=== PATIENT | male | born 1955 | race Two or more races ===

== ENCOUNTER 2017-01-11 17:24 | Emergency (ER) | payer MEDICARE, MEDICAID ==
[~2017-01-11] VITALS: Ht 185.4 cm; Wt 99.8 kg
[2017-01-11 18:27] LABS: Basophils # (auto) 0.1 uL; Basophils % (auto) 1.2 % (0.0-2.0); CONDITION Y; DEFINITIVE SEE PRINTOUT; Eosinophils # (auto) 0.6 uL; Eosinophils % (auto) 6.2 % (0.0-7.0); Hematocrit 30.6 % (41.0-53.0); Hemoglobin 9.5 g/dL (13.5-17.5); Lymphocytes # (auto) 2.3 uL; Lymphocytes % (auto) 22.8 % (10.0-50.0); Mean Corpuscular Hemoglobin 21.9 pg (28.0-32.0); Mean Corpuscular Volume 70.6 fL (80.0-100.0); Mean Platelet Volume 7.2 fL (7.4-10.4); Monocytes # (auto) 0.8 uL; Monocytes % (auto) 8.1 % (0.0-12.0); Neutrophils # (auto) 6.1 uL; Neutrophils % (auto) 61.7 % (37.0-80.0); Platelet Count (auto) 353 10^3/uL (140-450); White Blood Cell 9.9 10^3/uL (4.4-10.8)
[2017-01-11 18:43] LABS: Albumin 3.5 g/dL (3.4-5.0); BUN/Creatinine Ratio 19.1; Calcium 8.2 mg/dL (8.5-10.1); Potassium 4.1 mmol/L (3.5-5.1)
[2017-01-11 18:44] LABS: Red Cell Distribution Width 20.5 % (11.6-16.0)
[2017-01-11 18:46] LABS: Bilirubin, Total 0.3 mg/dL (0.2-1.0); Total Protein 7.2 g/dL (6.4-8.2)
[2017-01-11 19:02] LABS: Anisocytosis Slight; Hypochromia Slight; Ovalocytes FEW; Platelet Estimate Adequate
[2017-01-12 05:50] VITALS: BP 128/82
[2017-01-12] MEDS ORDERED: SODIUM CHLORIDE 0.9% 250 ML IV ONE (06:25)
[2017-01-12] MEDS ORDERED: PROMETHAZINE HCL 25 MG/ML 1ML IV ONE (06:30)
[2017-01-12] MEDS ORDERED: MORPHINE SULF INJ 2 MG/ML SYRINGE 1ML IM ONE (06:30)
[2017-01-12 06:44] LABS: INR 0.93 (0.9-1.15); Partial Thromboplastin Time 27.4 sec (22.64-33.71); Prothrombin Time 10.1 sec (9.37-12.3)
[2017-01-12] MEDS ORDERED: MORPHINE SULF INJ 2 MG/ML SYRINGE 1ML IV ONE (06:45)
== END 2017-01-12 07:13 | disposition home or self-care (01) ==
LOC: ER 17:26
DX: M79.89 Other specified soft tissue disorders (principal); I25.810 Atherosclerosis of coronary artery bypass graft(s) without angina pectoris; D50.9 Iron deficiency anemia, unspecified; I10 Essential (primary) hypertension; Z86.718 Personal history of other venous thrombosis and embolism
CPT/HCPCS: 36415; 71020; 80053; 85025; 85610; 85730; 93005; 93970; 96374; 96375; 99285; J2270; J2550; J7030

== ENCOUNTER 2017-01-19 21:31 | Emergency (ER) | payer MEDICARE, OTHER ==
[~2017-01-19] VITALS: Ht 185.4 cm; Wt 99.8 kg
[2017-01-19] MEDS ORDERED: ONDANSETRON HCL 4 MG/2 ML VIAL IV ONE (22:15)
[2017-01-19] MEDS ORDERED: HYDROmorphone HCL 2 MG/ML VL IV ONE ×2 (22:15→23:15)
[2017-01-19 22:17] LABS: Basophils # (auto) 0 uL; Basophils % (auto) 0.3 % (0.0-2.0); CONDITION Y; DEFINITIVE SEE PRINTOUT; Eosinophils # (auto) 0.3 uL; Hematocrit 27.3 % (41.0-53.0); Hemoglobin 8.6 g/dL (13.5-17.5); Lymphocytes # (auto) 1.9 uL; Lymphocytes % (auto) 21.4 % (10.0-50.0); Mean Corpuscular Hemoglobin 22.1 pg (28.0-32.0); Mean Corpuscular Hgb Conc. 31.5 g/dL (32.0-36.0); Mean Corpuscular Volume 70.1 fL (80.0-100.0); Mean Platelet Volume 6.7 fL (7.4-10.4); Monocytes # (auto) 0.8 uL; Monocytes % (auto) 9.6 % (0.0-12.0); Neutrophils # (auto) 5.6 uL; Neutrophils % (auto) 64.7 % (37.0-80.0); Platelet Count (auto) 446 10^3/uL (140-450); White Blood Cell 8.7 10^3/uL (4.4-10.8)
[2017-01-19 22:29] LABS: INR 0.98 (0.9-1.15); Partial Thromboplastin Time 24.2 sec (22.64-33.71); Prothrombin Time 10.7 sec (9.37-12.3)
[2017-01-19 22:35] LABS: Albumin 3.1 g/dL (3.4-5.0); BUN/Creatinine Ratio 23.5; Bilirubin, Total 0.3 mg/dL (0.2-1.0); Calcium 8.3 mg/dL (8.5-10.1); Total Protein 6.4 g/dL (6.4-8.2)
[2017-01-19 22:38] LABS: Platelet Estimate Adequate
[2017-01-19 22:39] LABS: Anisocytosis Moderate; Hypochromia Moderate; Ovalocytes FEW
[2017-01-19] MEDS ORDERED: ASPirin 81 mg TAB PO ONE (22:45)
[2017-01-19 23:17] LABS: Magnesium 2.2 mg/dL (1.6-2.6)
[2017-01-19 23:39] LABS: B-Type Natriuretic Peptide 39.73 pg/mL (0-100)
[2017-01-19 23:48] LABS: Temperature: 23.5 C (20.0-25.0)
[2017-01-20] MEDS ORDERED: DIAZEPAM 5 MG/ML 2ML SYRG IV ONE ×3 (00:45→08:00)
[2017-01-20] MEDS ORDERED: HYDROmorphone HCL 2 MG/ML VL IV ONE ×4 (02:30→10:00)
[2017-01-20] MEDS ORDERED: BACLOFEN 10 MG TAB PO ONE (03:45)
[2017-01-20] MEDS ORDERED: ONDANSETRON HCL 4 MG/2 ML VIAL IV ONE (06:00)
[2017-01-20 09:50] VITALS: BP 139/98
[2017-01-20] MEDS ORDERED: LORazepam 2MG/ML-1ML VIAL IV ONE (10:00)
== END 2017-01-20 10:01 | disposition short-term general hospital (02) ==
LOC: ER 21:43
DX: S73.005A Unspecified dislocation of left hip, initial encounter (principal); I10 Essential (primary) hypertension; X58.XXXA Exposure to other specified factors, initial encounter; Y93.39 Activity, other involving climbing, rappelling and jumping off; Y99.8 Other external cause status; Y92.89 Other specified places as the place of occurrence of the external cause; Z96.643 Presence of artificial hip joint, bilateral
CPT/HCPCS: 36415; 71010; 73502; 80053; 83735; 83880; 84443; 84484; 85025; 85379; 85610; 85730; 93005; 94761; 96374; 96375; 96376; 99285; J1170; J2060; J2405; J3360; J7030

== ENCOUNTER → 2017-03-09 | Outpatient (CLI) | payer MEDICARE, OTHER ==
[~2017-03-09] VITALS: Ht 185.4 cm; Wt 102.1 kg
[~2017-03-09] MED LIST: D5W 5% IV SCH; DIPYRIDAMOLE (5MG/ML) 10 ML VIAL IV ONE; DIPYRIDAMOLE IV SCH
== END | disposition home or self-care (01) ==
LOC: Rad HDHVI 13:27
PROVIDERS: ATTEND Internal Medicine Cardiovascular Disease
DX: I10 Essential (primary) hypertension (principal); I25.10 Atherosclerotic heart disease of native coronary artery without angina pectoris; E78.00 Pure hypercholesterolemia, unspecified
CPT/HCPCS: 78452; 93005; 96374; 96375; A9500; J1245

== ENCOUNTER → 2017-03-28 | Outpatient (CLI) | payer MEDICARE, OTHER | END | disposition home or self-care (01) | LOC: Rad HDHVI 15:00 | PROVIDERS: ATTEND Internal Medicine Cardiovascular Disease | DX: I10 Essential (primary) hypertension (principal) | CPT/HCPCS: 93306 ==

== ENCOUNTER → 2017-05-13 | Outpatient (CLI) | payer MEDICARE, OTHER ==
[2017-05-13 13:00] LABS: Nucleated Red Blood Cells % 0.1 %; Urine Bilirubin Negative (Negative); Urine Blood Negative /uL (Negative); Urine Color Yellow (Yellow); Urine Glucose Normal (Normal); Urine Ketone Negative (Negative); Urine Nitrite Negative (Negative)
[2017-05-13 13:03] LABS: Basophils # (auto) 0.1 uL; Basophils % (auto) 0.7 % (0.0-2.0); Eosinophils # (auto) 0.3 uL; Eosinophils % (auto) 3.3 % (0.0-7.0); Hematocrit 35.4 % (41.0-53.0); Hemoglobin 10.8 g/dL (13.5-17.5); Lymphocytes # (auto) 1.6 uL; Lymphocytes % (auto) 19.8 % (10.0-50.0); Mean Corpuscular Hemoglobin 21.4 pg (28.0-32.0); Mean Corpuscular Hgb Conc. 30.4 g/dL (32.0-36.0); Mean Corpuscular Volume 70.6 fL (80.0-100.0); Mean Platelet Volume 7.7 fL (6.9-10.8); Monocytes # (auto) 0.8 uL; Monocytes % (auto) 9.4 % (0.0-12.0); Neutrophils # (auto) 5.5 uL; Neutrophils % (auto) 66.8 % (37.0-80.0); Platelet Count (auto) 252 10^3/uL (140-450); Red Cell Distribution Width 19.3 % (11.8-14.3); White Blood Cell 8.2 10^3/uL (4.4-10.8)
[2017-05-13 13:37] LABS: Albumin 3.3 g/dL (3.4-5.0); BUN/Creatinine Ratio 31.7; Bilirubin, Direct 0.2 mg/dL (0-0.2); Bilirubin, Total 0.6 mg/dL (0.2-1.0); Calcium 9.1 mg/dL (8.5-10.1); Potassium 3.8 mmol/L (3.5-5.1); Total Protein 6.6 g/dL (6.4-8.2)
== END | disposition home or self-care (01) ==
LOC: LAB 08:39
PROVIDERS: ATTEND Internal Medicine Cardiovascular Disease
DX: I10 Essential (primary) hypertension (principal); E78.00 Pure hypercholesterolemia, unspecified; K74.1 Hepatic sclerosis; E11.9 Type 2 diabetes mellitus without complications; R97.20 Elevated prostate specific antigen [PSA]; R53.81 Other malaise; E03.9 Hypothyroidism, unspecified; D64.9 Anemia, unspecified; E55.9 Vitamin D deficiency, unspecified; N39.0 Urinary tract infection, site not specified
CPT/HCPCS: 36415; 80048; 80061; 80076; 81003; 82306; 83036; 84153; 84403; 84443; 85025

== ENCOUNTER 2017-08-13 20:42 | Emergency (ER) | payer MEDICARE, OTHER ==
[~2017-08-13] VITALS: Ht 188 cm; Wt 104.3 kg
[2017-08-13] MEDS ORDERED: MORPHINE SULFATE 4 MG/ML SYR/VIAL IV ONE (22:45)
[2017-08-13] MEDS ORDERED: ONDANSETRON HCL 4 MG/2 ML VIAL IV ONE ×2 (22:45→23:30)
[2017-08-13 23:13] LABS: Basophils # (auto) 0.1 uL; Basophils % (auto) 1.1 % (0.0-2.0); Eosinophils # (auto) 0.5 uL; Eosinophils % (auto) 4.7 % (0.0-7.0); Hematocrit 36.3 % (41.0-53.0); Hemoglobin 10.8 g/dL (13.5-17.5); Lymphocytes # (auto) 2.4 uL; Lymphocytes % (auto) 22.6 % (10.0-50.0); Mean Corpuscular Hemoglobin 21.2 pg (28.0-32.0); Mean Corpuscular Hgb Conc. 29.6 g/dL (32.0-36.0); Mean Corpuscular Volume 71.6 fL (80.0-100.0); Monocytes # (auto) 0.8 uL; Monocytes % (auto) 8.1 % (0.0-12.0); Neutrophils # (auto) 6.6 uL; Neutrophils % (auto) 63.5 % (37.0-80.0); Platelet Count (auto) 437 10^3/uL (140-450); Red Blood Cells 5.06 10^6/uL (4.5-5.90); White Blood Cell 10.4 10^3/uL (4.4-10.8)
[2017-08-13 23:14] LABS: Red Cell Distribution Width 21.5 % (11.8-14.3)
[2017-08-13] MEDS ORDERED: HYDROmorphone HCL 2 MG/ML VL IV ONE (23:30)
[2017-08-13 23:36] LABS: Albumin 3.1 g/dL (3.4-5.0); BUN/Creatinine Ratio 21.2; Bilirubin, Total 0.2 mg/dL (0.2-1.0); Calcium 8.3 mg/dL (8.5-10.1); Potassium 4.2 mmol/L (3.5-5.1); Total Protein 6.9 g/dL (6.4-8.2)
[2017-08-14] MEDS ORDERED: MORPHINE SULFATE 4 MG/ML SYR/VIAL IV ONE (01:15)
[2017-08-14] MEDS ORDERED: OXYCODONE W/ ACETAMINOPHEN 5/325MG TABLET PO ONE (01:15)
[2017-08-14 04:44] VITALS: BP 131/79
== END 2017-08-13 23:07 | disposition home or self-care (01) ==
LOC: ER 20:46
DX: M54.9 Dorsalgia, unspecified (principal); I10 Essential (primary) hypertension
CPT/HCPCS: 36415; 71250; 74176; 80053; 85025; 96374; 96375; 99285; J2270; J2405

== ENCOUNTER 2017-09-11 21:37 | Emergency (ER) | payer MEDICARE, OTHER ==
[~2017-09-11] VITALS: Ht 188 cm; Wt 102.1 kg
[2017-09-11 22:37] LABS: Urine Bacteria FEW /hpf (None Seen); Urine Blood Negative /uL (Negative); Urine Hyaline Cast FEW /lpf (0 - 2); Urine Mucus FEW (None Seen); Urine Specific Gravity 1.032 (1.001-1.035); Urine WBC 3 /hpf (0 - 3)
[2017-09-11 23:03] LABS: Eosinophils # (auto) 0.3 uL; Monocytes # (auto) 1.3 uL
[2017-09-11 23:04] LABS: Basophils # (auto) 0.2 uL; Basophils % (auto) 1.4 % (0.0-2.0); Eosinophils % (auto) 1.7 % (0.0-7.0); Hematocrit 40.4 % (41.0-53.0); Mean Corpuscular Hemoglobin 21.2 pg (28.0-32.0); Mean Corpuscular Hgb Conc. 29.8 g/dL (32.0-36.0); Mean Corpuscular Volume 71.1 fL (80.0-100.0); Monocytes % (auto) 8.6 % (0.0-12.0); Neutrophils # (auto) 11.6 uL; Neutrophils % (auto) 75.3 % (37.0-80.0); Nucleated Red Blood Cells % 0.1 %; Platelet Count (auto) 505 10^3/uL (140-450); Red Blood Cells 5.68 10^6/uL (4.5-5.90); White Blood Cell 15.4 10^3/uL (4.4-10.8)
[2017-09-11 23:08] LABS: Red Cell Distribution Width 20.3 % (11.8-14.3)
[2017-09-11 23:17] LABS: INR 0.96 (0.9-1.15); Prothrombin Time 10.5 sec (9.37-12.3)
[2017-09-11 23:30] LABS: Alanine Aminotransferase 17 U/L (16-61); Albumin 3.6 g/dL (3.4-5.0); Alkaline Phosphatase 97 U/L (45-117); Amylase 60 U/L (25-115); Anion Gap 11 (5-15); Aspartate Aminotransferase 16 U/L (15-37); BUN/Creatinine Ratio 15.1; Bilirubin, Total 0.9 mg/dL (0.2-1.0); Blood Urea Nitrogen 18 mg/dL (7-18); Calcium 9.1 mg/dL (8.5-10.1); Carbon Dioxide 22 mmol/L (21-32); Chloride 103 mmol/L (98-107); GFR African American 80 mL/min; GFR Non-African American 66 mL/min; Glucose 114 mg/dL (74-106); Lipase 73 U/L (73-393); Magnesium 2.6 mg/dL (1.6-2.6); Potassium 3.6 mmol/L (3.5-5.1); Sodium 136 mmol/L (136-145); Total Protein 7.9 g/dL (6.4-8.2)
[2017-09-12] MEDS ORDERED: ONDANSETRON HCL 4 MG/2 ML VIAL IV ONE (02:45)
[2017-09-12] MEDS ORDERED: NALBUPHINE HCL 10 MG/1ml INJECTION IV ONE ×2 (02:45→05:00)
[2017-09-12] MEDS ORDERED: KETOROLAC TROMETH 30 MG/ML 1ML VIAL IV ONE (02:45)
[2017-09-12 05:33] VITALS: BP 127/77
== END 2017-09-12 06:03 | disposition home or self-care (01) ==
LOC: ER 21:37
DX: N23 Unspecified renal colic (principal); I10 Essential (primary) hypertension; Z87.442 Personal history of urinary calculi; Z96.643 Presence of artificial hip joint, bilateral
CPT/HCPCS: 36415; 71045; 74176; 80053; 81001; 82150; 83690; 83735; 84484; 85025; 85610; 85730; 93005; 96374; 96375; 96376; 99285; J1885; J2300; J2405